=== PATIENT | female | born 1950 | race Caucasian/White ===

== ENCOUNTER 2017-07-05 07:10 | Day surgery (SDC) | payer MEDICARE ==
[2017-07-05] MEDS ORDERED: Propofol 10 mg/ml Inj (20 ML) ONE (08:49)
[2017-07-05] MEDS ORDERED: Lidocaine Hydrochloride 5 ML INJ ONE (08:49)
--- NOTE | 2017-07-05 08:49 | CP.SDSHP ---
Same Day Surgery H & P - History Proposed Procedure: EGD/COLONSCOPY Pre-Op Diagnosis: SEE NOTES - Previous Medical/Surgical History Cardiac: Hypertension Endocrine/Metabolic: Other Neuro: Backaches Pain: 4.Moderate Pain - Allergies Allergies: Allergies No Known Allergies Allergy (Verified 07/05/17 07:46) - Physical Exam General Appearance: N Vital Signs: Vital Signs 07/05/17 07:35 Temperature 97 F L Pulse Rate 75 Respiratory 19 Rate Blood Pressure 141/60 O2 Sat by Pulse 98 Oximetry Mental Status: Alert & Oriented x3 Neuro: WNL Heart: Other Lungs: WNL GI: Other - {Optional Preform as Required} Breast: WNL Abdomen: Other Rectal: Other Integument: WNL : WNL Ortho: Other ENT: WNL - Impression Pt. Evaluated Today:Candidate for Anesthesia & Procedure: Yes - Date & Time Time: 08:49 Short Stay Discharge - Short Stay Discharge Admitting Diagnosis/Reason for Visit: DIARRHEA, FUNCTIONAL DYSPEPSIA Disposition: HOME/ ROUTINE
[2017-07-05 09:33] VITALS: TEMP 98
[2017-07-05] MEDS ORDERED: Belladonna-Phenobarbital PO ONE (09:45)
[2017-07-05] MEDS ORDERED: Pantoprazole 40 mg EC Tab PO ONE (09:45)
[2017-07-05 09:54] VITALS: O2SAT 99
[2017-07-05 10:37] VITALS: BP 144/63; PULSE 71; RESP 15
== END 2017-07-05 10:25 | disposition home or self-care (01) ==
LOC: C.ENDO 07:10
PROVIDERS: ATTEND Specialist
DX: K63.5 Polyp of colon (principal); K64.8 Other hemorrhoids; K44.9 Diaphragmatic hernia without obstruction or gangrene; K29.70 Gastritis, unspecified, without bleeding; K20.9 Esophagitis, unspecified; I10 Essential (primary) hypertension
CPT/HCPCS: 43239; 45388; 88305; J2704